=== PATIENT | female | born 1955 | race American Indian/Alaskan Native ===

== ENCOUNTER 2017-01-27 16:08 | Emergency (ER) | payer OTHER | END 2017-01-27 17:55 | disposition left against medical advice (07) | LOC: DL.ED 16:08 | DX: Z53.21 Procedure and treatment not carried out due to patient leaving prior to being seen by health care provider (principal) ==

== ENCOUNTER 2017-02-02 18:23 | Emergency (ER) | payer OTHER ==
[2017-02-02 18:52] VITALS: BP 141/63
[2017-02-02] MEDS ORDERED: Ketorolac 30 MG/ML SDV IM ONE (20:23)
--- NOTE | 2017-02-02 20:31 | EDM.PDOC ---
ED HPI GENERAL MEDICAL PROBLEM - General Chief Complaint: Back Pain or Injury Stated Complaint: BACK PAIN, [id number] Time Seen by Provider: 02/02/17 20:25 Source of Information: Reports: Patient History Limitations: Reports: No Limitations - History of Present Illness INITIAL COMMENTS - FREE TEXT/NARRATIVE: This 61 yo female patient reports to the ED with lower back pain. The patient reports her pain started this morning with no history of trauma or falls. 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 The patient reports her pain kept her home from work today. 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 Lower Back Pain Score (Numeric/FACES): 8 - Related Data Allergies Allergy/AdvReac Type Severity Reaction Status Date / Time No Known Allergies Allergy Verified 02/02/17 18:52 Home Meds: Home Meds Aspirin [Hostetter Aspirin] 81 mg PO DAILY 08/17/13 [History] Lisinopril 10 mg PO DAILY 08/17/13 [History] Zolpidem [Ambien] 5 mg PO BEDTIME PRN 08/17/13 [History] traMADol [Ultram] 50 mg PO Q12HR PRN 08/17/13 [History] Cholecalciferol (Vitamin D3) [Vitamin D] 1,000 unit PO DAILY 09/05/14 [History] Simvastatin [Zocor] 10 mg PO BEDTIME 09/05/14 [History] Metoprolol Succinate [Toprol XL 50mg] 1 tab PO BID 04/22/15 [History] Past Medical History HEENT History: Reports: Impaired Vision Other HEENT History: wears glasses Cardiovascular History: Reports: High Cholesterol, Hypertension, Pacemaker Respiratory History: Reports: SOB Gastrointestinal History: Reports: Cirrhosis Genitourinary History: Reports: Pyelonephritis, Renal Calculus 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 Musculoskeletal History: Reports: RA Neurological History: Reports: None Psychiatric History: Reports: Addiction Endocrine/Metabolic History: Reports: None Hematologic History: Reports: None Immunologic History: Reports: None Oncologic (Cancer) History: Reports: Breast Dermatologic History: Reports: None - Past Surgical History GI Surgical History: Reports: Cholecystectomy Social & Family History - Family History Family Medical History: Noncontributory - Tobacco Use Smoking Status *Q: Current Every Day Smoker Years of Tobacco use: 40 Packs/Tins Daily: 10 Used Tobacco, but Quit: No Month Tobacco Last Used: aug Second Hand Smoke Exposure: No - Caffeine Use Caffeine Use: Reports: Coffee, Soda, Tea - Alcohol Use Days Per Week of Alcohol Use: 0 - Recreational Drug Use Recreational Drug Use: No - Living Situation & Occupation Living situation: Reports: with Family ED ROS GENERAL - Review of Systems Review Of Systems: ROS reveals no pertinent complaints other than HPI. ED EXAM,LOWER BACK PAIN/INJURY - Physical Exam Exam: See Below Exam Limited By: No Limitations General Appearance: Alert, WD/WN, Moderate Distress, Thin Eye Exam: Bilateral Eye: EOMI, Normal Inspection, PERRL Ears: Normal External Exam, Normal Canal, Hearing Grossly Normal, Normal TMs Nose: Normal Inspection, Normal Mucosa, No Blood Throat/Mouth: Normal Inspection, Normal Lips, Normal Teeth, Normal Gums, Normal Oropharynx, Normal Voice, No Airway Compromise Head: Atraumatic, Normocephalic Neck: Normal Inspection, Supple, Non-Tender, Full Range of Motion Respiratory/Chest: No Respiratory Distress, Lungs Clear, Normal Breath Sounds, No Accessory Muscle Use, Chest Non-Tender Cardiovascular: Normal Peripheral Pulses, Regular Rate, Rhythm, No Edema, No Gallop, No JVD, No Murmur, No Rub GI/Abdominal: Normal Bowel Sounds, Soft, Non-Tender, No Organomegaly, No Distention, No Abnormal Bruit, No Mass (Female) Exam: Deferred Rectal (Female) Exam: Deferred Back Exam: Decreased Range of Motion, Paraspinal Tenderness (lower back), Vertebral Tenderness (lower back) Extremities: Normal Inspection, Normal Range of Motion, Non-Tender, No Pedal Edema, Normal Capillary Refill Neurological: Alert, Normal Mood/Affect, Normal Dorsiflexion, CN II-XII Intact, Normal Plantar Flexion, Normal Gait, Normal Reflexes, No Motor/Sensory Deficits , Oriented x 3 Psychiatric: Normal Affect, Normal Mood Skin Exam: Warm, Dry, Intact, Normal Color, No Rash Lymphatic: No Adenopathy Course - Vital Signs Last Recorded V/S: Last Vital Signs Temp 36.4 C 02/02/17 18:36 Pulse 73 02/02/17 18:36 Resp 16 02/02/17 18:36 BP 141/63 H 02/02/17 18:36 Pulse Ox 100 02/02/17 18:36 - Orders/Labs/Meds Labs: Laboratory Tests 02/02/17 02/02/17 Range/Units 19:00 19:00 Urine Color Yellow (YELLOW) Urine Appearance Clear (CLEAR) Urine pH 6.0 (5.0-9.0) Ur Specific [place] 1.010 (1.005-1.030) Urine Protein Negative (NEGATIVE) Urine Glucose (UA) Negative (NEGATIVE) Urine Ketones Negative (NEGATIVE) Urine Occult Blood Negative (NEGATIVE) Urine Nitrite Negative (NEGATIVE) Urine Bilirubin Negative (NEGATIVE) Urine Urobilinogen 1.0 (0.2-1.0) mg/dL Ur Leukocyte Esterase Negative (NEGATIVE) Urine RBC 0-5 /HPF Urine WBC 0-5 (0-5/HPF) /HPF Ur Epithelial Cells Few /HPF Urine Bacteria Few (0-FEW/HPF) /HPF Urine Opiates Screen Negative (NEGATIVE) Ur Oxycodone Screen Negative (NEGATIVE) Urine Methadone Screen Negative (NEGATIVE) Ur Barbiturates Screen Negative (NEGATIVE) U Tricyclic Antidepress Negative (NEGATIVE) Ur Phencyclidine Scrn Negative (NEGATIVE) Ur Amphetamine Screen Negative (NEGATIVE) U Methamphetamines Scrn Negative (NEGATIVE) Urine MDMA Screen Negative (NEGATIVE) U Benzodiazepines Scrn Negative (NEGATIVE) Urine Cocaine Screen Negative (NEGATIVE) U Marijuana (THC) Screen Negative (NEGATIVE) Meds: Medications Discontinued Medications Generic Name Dose Route Start Last Admin Trade Name Freq PRN Reason Stop Dose Admin Ketorolac Tromethamine 60 mg 02/02/17 20:23 Toradol IM 02/02/17 20:24 ONETIME ONE Departure - Departure Time of Disposition: 20:28 Disposition: Home, Self-Care 01 Condition: fair Clinical Impression: Low back pain Qualifiers: Chronicity: acute Back pain laterality: midline Sciatica presence: without sciatica Qualified Code(s): M54.5 - Low back pain - Discharge Information Instructions: Back Pain, Adult, [id number], Chronic Back Pain Forms: ED Department Discharge Care Plan Goals: The patient was advised of the examination and lab results during the visit. The patient was given an injection of Toradol while in the ED. The patient was discharged with Flexeril (10 mg) #1 to take by mouth at bedtime and Toradol (10 mg) #2 to take 1 by mouth every 6 hours and a script for Toradol (10 mg) #20 to take 1 by mouth every 6 hours and Flexeril (10 mg) #10 to take 1 by mouth at bedtime. The patient should follow-up with her primary care facility on Saturday for continued evaluation and further treatment.
[2017-02-02] MEDS ORDERED: Ketorolac 10 MG Tab ONE (20:46)
[2017-02-02] MEDS ORDERED: Cyclobenzaprine 10 MG Tab PO ONE (20:47)
[2017-02-02] MEDS ORDERED: Ketorolac 10 MG Tab PO ONE (20:47)
[2017-02-02] MEDS ORDERED: Cyclobenzaprine 10 MG Tab ONE (20:47)
== END 2017-02-02 20:52 | disposition home or self-care (01) ==
LOC: DL.ED 18:23
DX: M54.5 Low back pain (principal); H54.7 Unspecified visual loss; E78.00 Pure hypercholesterolemia, unspecified; I10 Essential (primary) hypertension; Z95.0 Presence of cardiac pacemaker; Z98.890 Other specified postprocedural states; F17.210 Nicotine dependence, cigarettes, uncomplicated; Z79.899 Other long term (current) drug therapy; Z79.82 Long term (current) use of aspirin
CPT/HCPCS: 80305; 81001; 96372; 99283; J1885; A9270-GY

== ENCOUNTER 2017-04-28 19:11 | Emergency (ER) | payer OTHER ==
[2017-04-28 19:41] VITALS: BP 124/55
--- NOTE | 2017-04-30 04:45 | EDM.PDOC ---
ED HPI GENERAL MEDICAL PROBLEM - General Chief Complaint: Lower Extremity Injury/Pain Stated Complaint: BACK PAIN [id number] Time Seen by Provider: 04/28/17 22:00 Source of Information: Reports: Patient History Limitations: Reports: No Limitations - History of Present Illness INITIAL COMMENTS - FREE TEXT/NARRATIVE: c/o intermittent low back pain. Fell 3 weeks ago. pain worse today. Denies numbness or radiation of pain. Has not been seen in clinic for pain. 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 Lower Back Pain Score (Numeric/FACES): 7 - Related Data Allergies Allergy/AdvReac Type Severity Reaction Status Date / Time No Known Allergies Allergy Verified 04/28/17 19:41 Home Meds: Home Meds Lisinopril 10 mg PO DAILY 08/17/13 [History] Zolpidem [Ambien] 5 mg PO BEDTIME PRN 08/17/13 [History] traMADol [Ultram] 50 mg PO Q12HR PRN 08/17/13 [History] Cholecalciferol (Vitamin D3) [Vitamin D] 1,000 unit PO DAILY 09/05/14 [History] Simvastatin [Zocor] 10 mg PO BEDTIME 09/05/14 [History] Metoprolol Succinate [Toprol XL 50mg] 1 tab PO BID 04/22/15 [History] Rivaroxaban [Xarelto] 10 mg PO DAILY 04/28/17 [History] Past Medical History HEENT History: Reports: Impaired Vision Other HEENT History: wears glasses Cardiovascular History: Reports: Afib, High Cholesterol, Hypertension, Pacemaker Respiratory History: Reports: SOB Gastrointestinal History: Reports: Cholelithiasis, Cirrhosis Genitourinary History: Reports: Pyelonephritis, Renal Calculus 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, Musculoskeletal History: Reports: Back Pain, Chronic, RA Neurological History: Reports: None Psychiatric History: Reports: Addiction Endocrine/Metabolic History: Reports: None Hematologic History: Reports: None Immunologic History: Reports: None Oncologic (Cancer) History: Reports: Breast Dermatologic History: Reports: None - Past Surgical History GI Surgical History: Reports: Cholecystectomy Social & Family History - Family History Family Medical History: Noncontributory - Tobacco Use Smoking Status *Q: Current Every Day Smoker Years of Tobacco use: 40 Packs/Tins Daily: 0.3 Used Tobacco, but Quit: No Month Tobacco Last Used: aug Second Hand Smoke Exposure: No - Caffeine Use Caffeine Use: Reports: Coffee - Alcohol Use Days Per Week of Alcohol Use: 0 - Recreational Drug Use Recreational Drug Use: No - Living Situation & Occupation Living situation: Reports: with Family Review of Systems - Review of Systems Review Of Systems: ROS reveals no pertinent complaints other than HPI. ED EXAM, GENERAL - Physical Exam Exam: See Below Exam Limited By: No Limitations General Appearance: Alert, Mild Distress, Thin Eye Exam: Bilateral Eye: EOMI Ears: Normal External Exam Nose: Normal Inspection Throat/Mouth: Normal Inspection Head: Atraumatic, Normocephalic Neck: Normal Inspection Respiratory/Chest: No Respiratory Distress, Lungs Clear, Normal Breath Sounds Cardiovascular: Normal Peripheral Pulses, Regular Rate, Rhythm GI/Abdominal: Normal Bowel Sounds, Soft Back Exam: Paraspinal Tenderness (low lumbar sacral). No: CVA Tenderness (L), CVA Tenderness (R), Decreased Range of Motion, Muscle Spasm, Vertebral Tenderness Extremities: Normal Inspection, Normal Range of Motion Neurological: Alert, Oriented, Normal Cognition. No: Abnormal Gait, Abnormal Reflexes Psychiatric: Normal Affect Skin Exam: Warm, Dry, Intact, Normal Color Course - Vital Signs Last Recorded V/S: Last Vital Signs Temp 98.3 F 04/28/17 19:33 Pulse 73 04/28/17 19:33 Resp 16 04/28/17 19:33 BP 124/55 L 04/28/17 19:33 Pulse Ox 100 04/28/17 19:33 - Re-Assessments/Exams Free Text/Narrative Re-Assessment/Exam: Patient examined and orders placed. Patient noted did not want to wait and signed out AMA Departure - Departure Time of Disposition: 22:50 Disposition: Against Medical Advice 07 Condition: Undetermined Clinical Impression: Back pain Qualifiers: Back pain location: low back pain Chronicity: acute Back pain laterality: unspecified Sciatica presence: without sciatica Qualified Code(s): M54.5 - Low back pain - Discharge Information Referrals: PCP,None [Primary Care Provider] - Forms: ED Department Discharge
== END 2017-04-28 22:35 | disposition left against medical advice (07) ==
LOC: DL.ED 19:11
DX: M54.5 Low back pain (principal); I10 Essential (primary) hypertension; I48.91 Unspecified atrial fibrillation; E78.00 Pure hypercholesterolemia, unspecified; M06.9 Rheumatoid arthritis, unspecified; F17.210 Nicotine dependence, cigarettes, uncomplicated; Z85.3 Personal history of malignant neoplasm of breast; Z95.0 Presence of cardiac pacemaker; Z90.49 Acquired absence of other specified parts of digestive tract; Z79.899 Other long term (current) drug therapy
CPT/HCPCS: 99283

== ENCOUNTER 2017-07-17 10:23 | Emergency (ER) | payer OTHER ==
[2017-07-17] MEDS ORDERED: Sodium Chloride 0.9% 10 ML Syringe FLUSH PRN (10:55)
--- NOTE | 2017-07-17 11:04 | EDM.PDOC ---
ED HPI GENERAL MEDICAL PROBLEM - General Chief Complaint: Flank Pain Stated Complaint: PAIN, LEFT SIDE Time Seen by Provider: 07/17/17 10:50 Source of Information: Reports: Patient History Limitations: Reports: No Limitations - History of Present Illness INITIAL COMMENTS - FREE TEXT/NARRATIVE: This 61 yo female patient reports to the ED with left flank pain that radiates to her left shoulder. The patient reports her pain started 2-3 days ago and has been getting worse. The patient reports she does not remember doing anything to cause the pain (no lifting, no trauma and no fall). The patient reports she does have an appointment in the clinic at 1300 today, but she did not think she could put up with the pain that long. The patient reports she did take a Tramadol and 3x Tylenol (325 mg) this morning with no symptomatic relief. The patient reports she was seen for a UTI 2 weeks ago, took the antibiotics and felt better until 3 days ago. 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, Other Medication(s) Left Flank Pain Score (Numeric/FACES): 7 - Related Data Allergies Allergy/AdvReac Type Severity Reaction Status Date / Time No Known Allergies Allergy Verified 07/17/17 10:35 Home Meds: Home Meds Lisinopril 10 mg PO DAILY 08/17/13 [History] Zolpidem [Ambien] 5 mg PO BEDTIME PRN 08/17/13 [History] traMADol [Ultram] 50 mg PO Q12HR PRN 08/17/13 [History] Cholecalciferol (Vitamin D3) [Vitamin D] 1,000 unit PO DAILY 09/05/14 [History] Simvastatin [Zocor] 10 mg PO BEDTIME 09/05/14 [History] Metoprolol Succinate [Toprol XL 50mg] 1 tab PO BID 04/22/15 [History] Rivaroxaban [Xarelto] 10 mg PO DAILY 04/28/17 [History] Past Medical History HEENT History: Reports: Impaired Vision Other HEENT History: wears glasses Cardiovascular History: Reports: Afib, High Cholesterol, Hypertension, Pacemaker Respiratory History: Reports: SOB Gastrointestinal History: Reports: Cholelithiasis, Cirrhosis Genitourinary History: Reports: Pyelonephritis, Renal Calculus 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: Musculoskeletal History: Reports: Back Pain, Chronic, RA Neurological History: Reports: None Psychiatric History: Reports: Addiction Endocrine/Metabolic History: Reports: None Hematologic History: Reports: None Immunologic History: Reports: None Oncologic (Cancer) History: Reports: Breast Dermatologic History: Reports: None - Past Surgical History GI Surgical History: Reports: Cholecystectomy Social & Family History - Family History Family Medical History: Noncontributory - Tobacco Use Smoking Status *Q: Current Every Day Smoker Years of Tobacco use: 30 Packs/Tins Daily: 0.5 Used Tobacco, but Quit: No Month Tobacco Last Used: aug Second Hand Smoke Exposure: No - Caffeine Use Caffeine Use: Reports: Coffee, Tea - Alcohol Use Days Per Week of Alcohol Use: 0 - Recreational Drug Use Recreational Drug Use: No - Living Situation & Occupation Living situation: Reports: with Family ED ROS GENERAL - Review of Systems Review Of Systems: ROS reveals no pertinent complaints other than HPI. ED EXAM, GENERAL - Physical Exam Exam: See Below Exam Limited By: No Limitations General Appearance: Alert, WD/WN, Moderate Distress Eye Exam: Bilateral Eye: EOMI, Normal Inspection, PERRL Ears: Normal External Exam, Normal Canal, Hearing Grossly Normal, Normal TMs Nose: Normal Inspection, Normal Mucosa, No Blood Throat/Mouth: Normal Inspection, Normal Lips, Normal Teeth, Normal Gums, Normal Oropharynx, Normal Voice, No Airway Compromise Head: Atraumatic, Normocephalic Neck: Normal Inspection, Supple, Non-Tender, Full Range of Motion Respiratory/Chest: No Respiratory Distress, Lungs Clear, Normal Breath Sounds, No Accessory Muscle Use, Chest Non-Tender Cardiovascular: No Edema, No Gallop, No JVD, No Murmur, No Rub, Irregularly Irregular GI/Abdominal: Normal Bowel Sounds, Soft, Non-Tender, No Organomegaly, No Distention, No Abnormal Bruit, No Mass (Female) Exam: Deferred Rectal (Female) Exam: Deferred Back Exam: CVA Tenderness (L) Extremities: Normal Inspection, Normal Range of Motion, Non-Tender, Normal Capillary Refill, No Pedal Edema Neurological: Alert, Oriented, CN II-XII Intact, Normal Cognition, Normal Gait, Normal Reflexes, No Motor/Sensory Deficits Psychiatric: Normal Affect, Normal Mood Skin Exam: Warm, Dry, Intact, Normal Color, No Rash Lymphatic: No Adenopathy Course - Vital Signs Last Recorded V/S: Last Vital Signs Temp 36.7 C 07/17/17 10:46 Pulse 71 07/17/17 11:07 Resp 20 07/17/17 11:07 BP 170/71 H 07/17/17 11:07 Pulse Ox 100 07/17/17 11:07 - Orders/Labs/Meds Orders: Active Orders 24 hr Category Date Time Status EKG Documentation Completion [RC] URGENT Care 07/17/17 10:54 Active Sodium Chloride 0.9% [Saline Flush] Med 07/17/17 10:55 Active 10 ml FLUSH ASDIRECTED PRN Saline Lock Insert [OM.PC] Routine Oth 07/17/17 10:55 Ordered Medication Orders Sodium Chloride (Saline Flush) 10 ml FLUSH ASDIRECTED PRN PRN Reason: Keep Vein Open Last Admin: 07/17/17 11:03 Dose: 10 ml Labs: Laboratory Tests 07/17/17 07/17/17 07/17/17 Range/Units 10:42 10:42 10:50 WBC (5.0-10.0) 10^3/uL RBC (4.2-5.4) 10^6/uL Hgb (12.0-16.0) g/dL Hct (37.0-47.0) % MCV (80-100) fL MCH (27.0-34.0) pg MCHC (33.0-35.0) g/dL Plt Count (150-450) 10^3/uL Neut % (Auto) (42.2-75.2) % Lymph % (Auto) (20.5-50.1) % [place] % (Auto) (2-8) % Eos % (Auto) (1.0-3.0) % Baso % (Auto) (0.0-1.0) % Sodium (135-145) mmol/L Potassium (3.6-5.0) mmol/L Chloride (101-111) mmol/L Carbon Dioxide (21.0-31.0) mmol/L Anion Gap BUN (7-18) mg/dL Creatinine (0.6-1.3) mg/dL Est Cr Clr Drug Dosing mL/min Estimated GFR (MDRD) BUN/Creatinine Ratio Glucose (74-105) mg/dL Calcium (8.4-10.2) mg/dl Total Bilirubin (0.2-1.0) mg/dL AST (10-42) IU/L ALT (10-60) IU/L Alkaline Phosphatase (42-121) IU/L Troponin I (0.00-0.02) ng/ml Total Protein (6.7-8.2) g/dl Albumin (3.2-5.5) g/dl Globulin Albumin/Globulin Ratio Urine Color Yellow (YELLOW) Urine Appearance Clear (CLEAR) Urine pH 7.0 (5.0-9.0) Ur Specific [place] 1.010 (1.005-1.030) Urine Protein Negative (NEGATIVE) Urine Glucose (UA) Negative (NEGATIVE) Urine Ketones Negative (NEGATIVE) Urine Occult Blood Trace-intact H (NEGATIVE) Urine Nitrite Negative (NEGATIVE) Urine Bilirubin Negative (NEGATIVE) Urine Urobilinogen 0.2 (0.2-1.0) mg/dL Ur Leukocyte Esterase Negative (NEGATIVE) Urine RBC 0-5 /HPF Urine WBC 0-5 (0-5/HPF) /HPF Ur Epithelial Cells Few /HPF Urine Bacteria Rare (0-FEW/HPF) /HPF Urine Opiates Screen Negative (NEGATIVE) Ur Oxycodone Screen Negative (NEGATIVE) Urine Methadone Screen Negative (NEGATIVE) Ur Barbiturates Screen Negative (NEGATIVE) U Tricyclic Antidepress Negative (NEGATIVE) Ur Phencyclidine Scrn Negative (NEGATIVE) Ur Amphetamine Screen Negative (NEGATIVE) U Methamphetamines Scrn Negative (NEGATIVE) Urine MDMA Screen Negative (NEGATIVE) U Benzodiazepines Scrn Negative (NEGATIVE) Urine Cocaine Screen Negative (NEGATIVE) U Marijuana (THC) Screen Negative (NEGATIVE) Ethyl Alcohol 5 mg/dL 07/17/17 07/17/17 07/17/17 Range/Units 10:50 10:50 10:50 WBC 6.0 (5.0-10.0) 10^3/uL RBC 3.99 L (4.2-5.4) 10^6/uL Hgb 12.2 (12.0-16.0) g/dL Hct 38.5 (37.0-47.0) % MCV 96.5 (80-100) fL MCH 30.6 (27.0-34.0) pg MCHC 31.7 L (33.0-35.0) g/dL Plt Count 161 (150-450) 10^3/uL Neut % (Auto) 62.9 (42.2-75.2) % Lymph % (Auto) 26.2 (20.5-50.1) % [place] % (Auto) 9.2 H (2-8) % Eos % (Auto) 1.5 (1.0-3.0) % Baso % (Auto) 0.2 (0.0-1.0) % Sodium 139 (135-145) mmol/L Potassium 4.0 (3.6-5.0) mmol/L Chloride 105 (101-111) mmol/L Carbon Dioxide 26.0 (21.0-31.0) mmol/L Anion Gap 12.0 BUN 10 (7-18) mg/dL Creatinine 0.7 (0.6-1.3) mg/dL Est Cr Clr Drug Dosing 78.01 mL/min Estimated GFR (MDRD) > 60 BUN/Creatinine Ratio 14.28 Glucose 101 (74-105) mg/dL Calcium 9.7 (8.4-10.2) mg/dl Total Bilirubin 1.0 (0.2-1.0) mg/dL AST 39 (10-42) IU/L ALT 14 (10-60) IU/L Alkaline Phosphatase 360 H (42-121) IU/L Troponin I 0.02 (0.00-0.02) ng/ml Total Protein 8.6 H (6.7-8.2) g/dl Albumin 2.9 L (3.2-5.5) g/dl Globulin 5.7 Albumin/Globulin Ratio 0.51 Urine Color (YELLOW) Urine Appearance (CLEAR) Urine pH (5.0-9.0) Ur Specific [place] (1.005-1.030) Urine Protein (NEGATIVE) Urine Glucose (UA) (NEGATIVE) Urine Ketones (NEGATIVE) Urine Occult Blood (NEGATIVE) Urine Nitrite (NEGATIVE) Urine Bilirubin (NEGATIVE) Urine Urobilinogen (0.2-1.0) mg/dL Ur Leukocyte Esterase (NEGATIVE) Urine RBC /HPF Urine WBC (0-5/HPF) /HPF Ur Epithelial Cells /HPF Urine Bacteria (0-FEW/HPF) /HPF Urine Opiates Screen (NEGATIVE) Ur Oxycodone Screen (NEGATIVE) Urine Methadone Screen (NEGATIVE) Ur Barbiturates Screen (NEGATIVE) U Tricyclic Antidepress (NEGATIVE) Ur Phencyclidine Scrn (NEGATIVE) Ur Amphetamine Screen (NEGATIVE) U Methamphetamines Scrn (NEGATIVE) Urine MDMA Screen (NEGATIVE) U Benzodiazepines Scrn (NEGATIVE) Urine Cocaine Screen (NEGATIVE) U Marijuana (THC) Screen (NEGATIVE) Ethyl Alcohol mg/dL Meds: Medications Generic Name Dose Route Start Last Admin Trade Name Freq PRN Reason Stop Dose Admin Sodium Chloride 10 ml 07/17/17 10:55 07/17/17 11:03 Saline Flush FLUSH 10 ml ASDIRECTED PRN Administration Keep Vein Open Discontinued Medications Generic Name Dose Route Start Last Admin Trade Name Freq PRN Reason Stop Dose Admin Ketorolac Tromethamine 30 mg 07/17/17 11:24 07/17/17 11:28 Toradol IVPUSH 07/17/17 11:25 30 mg ONETIME ONE Administration Departure - Departure Time of Disposition: 12:35 Disposition: Home, Self-Care 01 Condition: Fair Clinical Impression: Low back strain Qualifiers: Encounter type: initial encounter Qualified Code(s): S39.012A - Strain of muscle, fascia and tendon of lower back, initial encounter - Discharge Information Instructions: Back Pain, Adult, [id number] Forms: ED Department Discharge Care Plan Goals: The patient was advised of the examination, lab, EKG, and CT results during the visit. The patient was given an IV dose of Toradol while in the ED. The patient was discharged with a script for Toradol (10 mg) #16 to take 1 by mouth every 6 hours and Flexeril (5 mg) #10 to take 1 by mouth at bedtime. If the patient has any additional symptoms or concerns, the patient should follow-up with her primary care facility or return to the emergency department. - My Orders Last 24 Hours: My Active Orders 07/17/17 10:54 EKG Documentation Completion [RC] URGENT 07/17/17 10:55 Sodium Chloride 0.9% [Saline Flush] 10 ml FLUSH ASDIRECTED PRN Saline Lock Insert [OM.PC] Routine - Assessment/Plan Last 24 Hours: My Active Orders 07/17/17 10:54 EKG Documentation Completion [RC] URGENT 07/17/17 10:55 Sodium Chloride 0.9% [Saline Flush] 10 ml FLUSH ASDIRECTED PRN Saline Lock Insert [OM.PC] Routine
[2017-07-17 11:22] LABS: CHLORIDE,CL 105 mmol/L (101-111); SODIUM,NA 139 mmol/L (135-145)
[2017-07-17] MEDS ORDERED: Ketorolac 30 MG/ML SDV IVPUSH ONE (11:24)
--- NOTE | 2017-07-17 12:23 | CT ---
Clinical history: 61-year-old hypertensive 143 pound female "smoker" with trace hematuria and flank p ain (primary biliary cirrhosis and history breast cancer). Rule out nephrolithiasis. Scan technique: Volume acquisition of data emergency unenhanced CT scan of the abdomen and pelvis (ki dneys/ureters/bladder) obtained with the patient lying supine on the Siemens multi slice CT scanner [place], [place]. All data archived PACS system for storage, reformatti ng axial/sagittal/coronal planes and study. Interpretation: 1. Cardiomegaly and cardiac pacemaker leads. Bibasilar atelectasis/infiltrates and small effusions. 2. Atheromatous calcifications scattered across course of normal caliber aortoiliac vessels. No sign of aneurysm or dissection. 3. Asymmetrically larger right kidney with mild pyelocaliectasis but no sign of ipsilateral nephrolit hiasis or ureterectasis. 4. Smaller left kidney without pyelocaliectasis or ureterectasis. No nephrolithiasis or signs of obst ructive uropathy on the left. 5. Vascular calcifications (arterial vascular and phleboliths) pelvis and adnexa (left greater than r ight). Uterine calcification. 6. No pelvic or abdominal mass lesion, mesenteric or retroperitoneal lymphadenopathy, inflammatory "d irty" peritoneal fat, sign of mechanical bowel obstruction or free intraperitoneal air. Normal append ix RLQ. 7. Surgical clips gallbladder fossa. Unenhanced stomach (small hiatus hernia), pancreas and adrenal g lands unremarkable. Hepatosplenomegaly. No ascites. Symmetric distended urinary bladder unremarkable. CONCLUSION: Hepatocellular disease (splenomegaly). Cardiomyopathy. Bibasilar infiltrates (see above). Usual signs of senescence. *No current evidence of nephrolithiasis or obstructive uropathy.
[2017-07-17 12:47] VITALS: BP 173/65
--- NOTE | 2017-07-25 14:09 | EKG ---
07/17/2017- JEFERSON JACOBSEN - FINDINGS: EKG, per my reading, shows ventricular paced rhythm. [facility] /[id number]
== END 2017-07-17 12:43 | disposition home or self-care (01) ==
LOC: DL.ED 10:23
DX: S39.012A Strain of muscle, fascia and tendon of lower back, initial encounter (principal); I10 Essential (primary) hypertension; E78.00 Pure hypercholesterolemia, unspecified; I48.91 Unspecified atrial fibrillation; F17.210 Nicotine dependence, cigarettes, uncomplicated; Z79.899 Other long term (current) drug therapy; X58.XXXA Exposure to other specified factors, initial encounter
CPT/HCPCS: 36415; 74176; 80053; 80305; 81001; 84484; 85025; 93005; 96374; 99285; G0480; J1885; J7050

== ENCOUNTER 2019-06-25 14:07 | Emergency (ER) | payer MEDICAID, OTHER ==
[2019-06-25 14:32] VITALS: BP 133/51; PULSE 73
--- NOTE | 2019-06-25 15:08 | EDM.PDOC ---
ED HPI GENERAL MEDICAL PROBLEM - General Chief Complaint: Abdominal Pain Stated Complaint: STOMACH PAIN Time Seen by Provider: 06/25/19 14:45 Source of Information: Reports: Patient History Limitations: Reports: No Limitations - History of Present Illness INITIAL COMMENTS - FREE TEXT/NARRATIVE: This 63 yo female patient reports to the ED with her daughter due to increased weakness and increased abdominal pain. The patient's daughter reports the patient was going well yesterday, but has not been able to do anything on her own today. The patient does have a history of breast cancer and cirrhosis. The patient reports she has been having abdominal pain for 3 days with nausea, vomiting and diarrhea. The patient refused to allow us to given her IV fluids initially. Duration: Day(s):, Constant, Getting Worse Location: Reports: Abdomen, Generalized Quality: Reports: Other Severity: Moderate Improves with: Reports: None Worsens with: Reports: None Context: Reports: Activity, Other Generalized Pain Score (Numeric/FACES): 10 - Related Data Allergies Allergy/AdvReac Type Severity Reaction Status Date / Time No Known Allergies Allergy Verified 06/25/19 14:32 Home Meds: Home Meds Lisinopril 10 mg PO DAILY 08/17/13 [History] Zolpidem [Ambien] 5 mg PO BEDTIME PRN 08/17/13 [History] traMADol [Ultram] 50 mg PO Q12HR PRN 08/17/13 [History] Cholecalciferol (Vitamin D3) [Vitamin D] 1,000 unit PO DAILY 09/05/14 [History] Simvastatin [Zocor] 10 mg PO BEDTIME 09/05/14 [History] Metoprolol Succinate [Toprol XL 50mg] 1 tab PO BID 04/22/15 [History] Rivaroxaban [Xarelto] 10 mg PO DAILY 04/28/17 [History] Past Medical History HEENT History: Reports: Impaired Vision Other HEENT History: wears glasses Cardiovascular History: Reports: Afib, High Cholesterol, Hypertension, Pacemaker Respiratory History: Reports: SOB Gastrointestinal History: Reports: Cholelithiasis, Cirrhosis Genitourinary History: Reports: Pyelonephritis, Renal Calculus [employer] History: Reports: Musculoskeletal History: Reports: Back Pain, Chronic, RA Neurological History: Reports: None Psychiatric History: Reports: Addiction Endocrine/Metabolic History: Reports: None Hematologic History: Reports: None Immunologic History: Reports: None Oncologic (Cancer) History: Reports: Breast Dermatologic History: Reports: None - Past Surgical History GI Surgical History: Reports: Cholecystectomy Social & Family History - Family History Family Medical History: Noncontributory - Tobacco Use Smoking Status *Q: Current Every Day Smoker Years of Tobacco use: 40 Packs/Tins Daily: 0.5 Second Hand Smoke Exposure: No - Caffeine Use Caffeine Use: Reports: Coffee, Soda - Recreational Drug Use Recreational Drug Use: No - Living Situation & Occupation Living situation: Reports: with Family ED ROS GENERAL - Review of Systems Review Of Systems: ROS reveals no pertinent complaints other than HPI. ED EXAM, GI/ABD - Physical Exam Exam: See Below Exam Limited By: Altered Mental Status General Appearance: Alert, Moderate Distress Eyes: Bilateral: Normal Appearance, EOMI Ears: Normal External Exam, Normal Canal, Hearing Grossly Normal, Normal TMs Nose: Normal Inspection, Normal Mucosa, No Blood Throat/Mouth: Normal Inspection, Normal Lips, Normal Teeth, Normal Gums, Normal Oropharynx, Normal Voice, No Airway Compromise Head: Atraumatic, Normocephalic Neck: Normal Inspection, Supple, Non-Tender, Full Range of Motion Respiratory/Chest: No Respiratory Distress, Lungs Clear, Normal Breath Sounds, No Accessory Muscle Use, Chest Non-Tender Cardiovascular: Normal Peripheral Pulses, Regular Rate, Rhythm, No Edema, No Gallop, No JVD, No Murmur, No Rub GI/Abdominal Exam: Normal Bowel Sounds, No Organomegaly, No Distention, No Abnormal Bruit, No Mass, Pelvis Stable, Tender (diffuse tenderness to palpation) (Female) Exam: Deferred Rectal (Female) Exam: Deferred Back Exam: Normal Inspection, Full Range of Motion, NT Extremities: Normal Inspection, Normal Range of Motion, Non-Tender, Normal Capillary Refill, No Pedal Edema Neurological: Alert, Oriented, CN II-XII Intact, Normal Cognition, Normal Gait, Normal Reflexes, No Motor/Sensory Deficits Psychiatric: Anxious Skin Exam: Jaundice Lymphatic: No Adenopathy Course - Vital Signs Last Recorded V/S: Last Vital Signs Temp 36.6 C 06/25/19 14:23 Pulse 73 06/25/19 14:23 Resp 16 06/25/19 14:23 BP 133/51 L 06/25/19 14:23 Pulse Ox 99 06/25/19 14:23 - Orders/Labs/Meds Orders: Active Orders 24 hr Category Date Time Status EKG Documentation Completion [RC] URGENT Care 06/25/19 14:29 Active CBC WITH AUTO DIFF [HEME] Urgent Lab 06/25/19 14:41 Results CULTURE BLOOD [BC] Stat Lab 06/25/19 14:41 Received MANUAL DIFFERENTIAL QA/NC [HEME] Urgent Lab 06/25/19 14:41 Results UA RFX ZAIRE AND CULT IF INDIC [URIN] Urgent Lab 06/25/19 14:44 Ordered Sodium Chloride 0.9% [Normal Saline] 1,000 ml Med 06/25/19 15:09 Active IV .BOLUS Medication Orders Sodium Chloride (Normal Saline) 1,000 mls @ 500 mls/hr IV .BOLUS ONE Stop: 06/25/19 17:08 Last Admin: 06/25/19 15:32 Dose: 500 mls/hr Labs: Laboratory Tests 06/25/19 06/25/19 06/25/19 Range/Units 14:41 14:41 14:41 WBC (5.0-10.0) 10^3/uL RBC (4.2-5.4) 10^6/uL Hgb (12.0-16.0) g/dL Hct (37.0-47.0) % MCV (80-100) fL MCH (27.0-34.0) pg MCHC (33.0-35.0) g/dL Plt Count (150-450) 10^3/uL Neut % (Auto) (42.2-75.2) % Lymph % (Auto) (20.5-50.1) % [place] % (Auto) (2-8) % Eos % (Auto) (1.0-3.0) % Baso % (Auto) (0.0-1.0) % Add Manual Diff Sodium (135-145) mmol/L Potassium (3.6-5.0) mmol/L Chloride (101-111) mmol/L Carbon Dioxide (21.0-31.0) mmol/L Anion Gap BUN (7-18) mg/dL Creatinine (0.6-1.3) mg/dL Est Cr Clr Drug Dosing mL/min Estimated GFR (MDRD) BUN/Creatinine Ratio Glucose (74-105) mg/dL Lactic Acid 1.2 (0.5-2.2) mmol/L Calcium (8.4-10.2) mg/dl Magnesium 2.1 (1.8-2.5) mg/dL Total Bilirubin (0.2-1.0) mg/dL AST (10-42) IU/L ALT (10-60) IU/L Alkaline Phosphatase (42-121) IU/L Ammonia 173 H (11-35) umol/L Troponin I (0.00-0.02) ng/ml Total Protein (6.7-8.2) g/dl Albumin (3.2-5.5) g/dl Globulin Albumin/Globulin Ratio Amylase 26 L (28-100) U/L Lipase 41 (22-51) U/L Salicylates < 4 mg/dL Acetaminophen < 10 ug/mL Ethyl Alcohol < 5 mg/dL 06/25/19 06/25/19 Range/Units 14:41 14:41 WBC 12.6 H (5.0-10.0) 10^3/uL RBC 4.05 L (4.2-5.4) 10^6/uL Hgb 12.7 (12.0-16.0) g/dL Hct 36.5 L (37.0-47.0) % MCV 90.1 D (80-100) fL MCH 31.4 (27.0-34.0) pg MCHC 34.8 (33.0-35.0) g/dL Plt Count 108 L (150-450) 10^3/uL Neut % (Auto) 80.1 H (42.2-75.2) % Lymph % (Auto) 8.8 L (20.5-50.1) % [place] % (Auto) 10.7 H (2-8) % Eos % (Auto) 0.4 L (1.0-3.0) % Baso % (Auto) 0.0 (0.0-1.0) % Add Manual Diff Yes Sodium 126 L D (135-145) mmol/L Potassium 3.8 (3.6-5.0) mmol/L Chloride 97 L (101-111) mmol/L Carbon Dioxide 18.0 L (21.0-31.0) mmol/L Anion Gap 14.8 BUN 55 H D (7-18) mg/dL Creatinine 0.9 (0.6-1.3) mg/dL Est Cr Clr Drug Dosing 59.12 mL/min Estimated GFR (MDRD) > 60 BUN/Creatinine Ratio 61.11 Glucose 128 H (74-105) mg/dL Lactic Acid (0.5-2.2) mmol/L Calcium 8.7 (8.4-10.2) mg/dl Magnesium (1.8-2.5) mg/dL Total Bilirubin 6.1 H (0.2-1.0) mg/dL AST 72 H (10-42) IU/L ALT 42 (10-60) IU/L Alkaline Phosphatase 261 H (42-121) IU/L Ammonia (11-35) umol/L Troponin I 0.03 H* (0.00-0.02) ng/ml Total Protein 7.0 (6.7-8.2) g/dl Albumin 2.3 L (3.2-5.5) g/dl Globulin 4.7 Albumin/Globulin Ratio 0.49 Amylase (28-100) U/L Lipase (22-51) U/L Salicylates mg/dL Acetaminophen ug/mL Ethyl Alcohol mg/dL Meds: Medications Generic Name Dose Route Start Last Admin Trade Name Freq PRN Reason Stop Dose Admin Sodium Chloride 1,000 mls @ 500 mls/hr 06/25/19 15:09 06/25/19 15:32 Normal Saline IV 06/25/19 17:08 500 mls/hr .BOLUS ONE Administration Discontinued Medications Generic Name Dose Route Start Last Admin Trade Name Freq PRN Reason Stop Dose Admin Lactulose 20 gm 06/25/19 15:30 06/25/19 15:35 Cephulac PO 06/25/19 15:31 20 gm ONETIME ONE Administration Departure - Departure Time of Disposition: 15:47 Disposition: DC/Tfer to [facility] Condition: Serious Clinical Impression: Increased ammonia level, Encephalopathy acute, Hyponatremia Abdominal pain Qualifiers: Abdominal location: generalized Qualified Code(s): R10.84 - Generalized abdominal pain - Discharge Information *PRESCRIPTION DRUG MONITORING PROGRAM REVIEWED*: Not Applicable *COPY OF PRESCRIPTION DRUG MONITORING REPORT IN PATIENT DIANE: Not Applicable Forms: Interfacility Transfer EMTALA Care Plan Goals: Discussed the patient's history, examination, lab and treatments with Dr. Crawley. Dr. Crawley accepted the patient for continued evaluation and further management as an inpatient at [facility] in [place]. The patient will be transported by [facility]. - My Orders Last 24 Hours: My Active Orders 06/25/19 14:29 EKG Documentation Completion [RC] URGENT 06/25/19 14:41 CBC WITH AUTO DIFF [HEME] Urgent CULTURE BLOOD [BC] Stat MANUAL DIFFERENTIAL QA/NC [HEME] Urgent 06/25/19 14:44 UA RFX ZAIRE AND CULT IF INDIC [URIN] Urgent 06/25/19 15:09 Sodium Chloride 0.9% [Normal Saline] 1,000 ml IV .BOLUS - Assessment/Plan Last 24 Hours: My Active Orders 06/25/19 14:29 EKG Documentation Completion [RC] URGENT 06/25/19 14:41 CBC WITH AUTO DIFF [HEME] Urgent CULTURE BLOOD [BC] Stat MANUAL DIFFERENTIAL QA/NC [HEME] Urgent 06/25/19 14:44 UA RFX ZAIRE AND CULT IF INDIC [URIN] Urgent 06/25/19 15:09 Sodium Chloride 0.9% [Normal Saline] 1,000 ml IV .BOLUS
[2019-06-25 15:15] LABS: ANION GAP 14.8; CHLORIDE,CL 97 mmol/L (101-111); SODIUM,NA 126 mmol/L (135-145)
[2019-06-25 15:19] LABS: ACETAMINOPHEN < 10 ug/mL
[2019-06-25] MEDS: Sodium Chloride 0.9% 1,000 ML IV ONE (15:32)
[2019-06-25] MEDS: Lactulose Soln 10 GM/15 ML 30 ML UD Cup PO ONE (15:35)
== END 2019-06-25 16:06 ==
LOC: DL.ED 14:07
DX: G93.40 Encephalopathy, unspecified (principal); E87.1 Hypo-osmolality and hyponatremia; R10.84 Generalized abdominal pain; R79.89 Other specified abnormal findings of blood chemistry; I10 Essential (primary) hypertension; E78.00 Pure hypercholesterolemia, unspecified; I48.91 Unspecified atrial fibrillation; F17.210 Nicotine dependence, cigarettes, uncomplicated; Z79.01 Long term (current) use of anticoagulants; Z79.899 Other long term (current) drug therapy
CPT/HCPCS: 36415; 80053; 80320; 80329; 82140; 82150; 83605; 83690; 83735; 84484; 85025; 87040; 93005; 99284; A9270; J7030; G0480

== ENCOUNTER 2022-09-26 11:31 | Day surgery (SDC) | payer MEDICARE, OTHER ==
[2022-09-26 11:07] VITALS: BP 128/52; PULSE 71
[~2022-09-26 11:31] MED LIST: Acetaminophen 325 MG Tab PO PRN; Acetaminophen/Codeine 300-30 MG Tab PO PRN; Acetylcholine 20 MG/2 ML Intraocular Inj Kit EYELF ONE; Apraclonidine 0.5% Ophth Soln 5 ML Bot EYELF ONE; Balanced Salt Solution Ophth Irrig 500 ML Bottle IOCULAR ONE; Cataract Ophth Solution EYELF ONE; Chondroitin Sulfate/Hyaluronate Sodium Ophth Inj 0.5 ML Syringe IOCULAR ONE; Chondroitin Sulfate/Hyaluronate Sodium Ophth Inj 0.75 ML Syringe EYELF ONE; Dexamethasone/Neomycin/Polymyxin B Ophth Oint 3.5 GM Tube EYELF ONE; Diclofenac Sodium 0.1% Ophth Soln 5 ML Bottle EYELF ONE; Lidocaine 1% 30 ML SDV ONE; Moxifloxacin 0.5% Ophth Soln 3 ML Bottle EYELF ONE; Ondansetron 4 MG/2 ML SDV IVPUSH PRN; Phenylephrine 10% Ophth Soln 5 ML Bot EYELF PRN; Povidone-Iodine 5% Sterile Ophth Soln 30 ML Bottle EYELF ONE; Proparacaine 0.5% Ophth Soln 15 ML Bottle EYELF ONE; Sodium Chloride 0.9% 10 ML Syringe FLUSH PRN; Timolol Maleate 0.5% Ophth Soln 5 ML Bottle EYELF ONE; Tropicamide 1% Ophth Soln 15 ML Bottle EYELF ONE; Vancomycin 500 MG SDV EYELF ONE
[2022-09-26] MEDS ORDERED: Midazolam 1 MG/ML 2 ML SDV IV ONE (11:32)
[2022-09-26] MEDS ORDERED: Dexamethasone 4 MG/ML SDV IV ONE (11:32)
[2022-09-26] MEDS ORDERED: Sodium Chloride 0.9% 10 ML Syringe IV ONE (11:32)
== END 2022-09-26 11:40 | disposition home or self-care (01) ==
LOC: DL.SDS 11:31
PROVIDERS: ATTEND Ophthalmology
DX: H25.812 Combined forms of age-related cataract, left eye (principal); H40.1120 Primary open-angle glaucoma, left eye, stage unspecified; I10 Essential (primary) hypertension; E78.5 Hyperlipidemia, unspecified; G62.9 Polyneuropathy, unspecified; G47.00 Insomnia, unspecified; E55.9 Vitamin D deficiency, unspecified; G89.29 Other chronic pain; D64.9 Anemia, unspecified; K21.9 Gastro-esophageal reflux disease without esophagitis; M81.0 Age-related osteoporosis without current pathological fracture; F17.210 Nicotine dependence, cigarettes, uncomplicated; Z95.0 Presence of cardiac pacemaker; Z79.899 Other long term (current) drug therapy
CPT/HCPCS: A9270-GY; J1100; J2250; J3370; J3490

== ENCOUNTER 2023-01-09 10:04 | Day surgery (SDC) | payer MEDICARE, OTHER ==
[2023-01-09] MEDS ORDERED: Acetaminophen/Codeine 300-30 MG Tab PO PRN (10:15)
[2023-01-09] MEDS ORDERED: Timolol Maleate 0.5% Ophth Soln 5 ML Bottle EYERT ONE (10:15)
[2023-01-09] MEDS ORDERED: Ondansetron 4 MG/2 ML SDV IVPUSH PRN (10:15)
[2023-01-09] MEDS ORDERED: Moxifloxacin 0.5% Ophth Soln 3 ML Bottle EYERT ONE (10:15)
[2023-01-09] MEDS ORDERED: Phenylephrine 10% Ophth Soln 5 ML Bot EYERT PRN (10:15)
[2023-01-09] MEDS ORDERED: Sodium Chloride 0.9% 10 ML Syringe FLUSH PRN (10:15)
[2023-01-09] MEDS ORDERED: Povidone-Iodine 5% Sterile Ophth Soln 30 ML Bottle EYERT ONE ×2 (10:15→11:10)
[2023-01-09] MEDS ORDERED: Tropicamide 1% Ophth Soln 15 ML Bottle EYERT ONE (10:15)
[2023-01-09] MEDS ORDERED: Proparacaine 0.5% Ophth Soln 15 ML Bottle EYERT ONE ×2 (10:15→11:10)
[2023-01-09] MEDS ORDERED: Cataract Ophth Solution EYERT ONE (10:15)
[2023-01-09] MEDS ORDERED: Acetaminophen 325 MG Tab PO PRN (10:15)
[2023-01-09] MEDS ORDERED: Lidocaine 1% 30 ML SDV ONE (11:15)
[2023-01-09] MEDS ORDERED: Balanced Salt Solution Ophth Irrig 500 ML Bottle IOCULAR ONE (11:17)
[2023-01-09] MEDS ORDERED: Vancomycin 500 MG SDV EYERT ONE (11:18)
[2023-01-09] MEDS ORDERED: Chondroitin Sulfate/Hyaluronate Sodium Ophth Inj 0.75 ML Syringe EYERT ONE (11:19)
[2023-01-09] MEDS ORDERED: Apraclonidine 0.5% Ophth Soln 5 ML Bot EYERT ONE (11:24)
[2023-01-09] MEDS ORDERED: Dexamethasone/Neomycin/Polymyxin B Ophth Oint 3.5 GM Tube EYERT ONE (11:25)
[2023-01-09] MEDS ORDERED: Diclofenac Sodium 0.1% Ophth Soln 5 ML Bottle EYERT ONE (11:25)
[2023-01-09 12:34] VITALS: BP 125/46; PULSE 71
== END 2023-01-09 12:15 | disposition home or self-care (01) ==
LOC: DL.SDS 10:04
PROVIDERS: ATTEND Ophthalmology
DX: H26.9 Unspecified cataract (principal); H40.1112 Primary open-angle glaucoma, right eye, moderate stage; I10 Essential (primary) hypertension; E78.5 Hyperlipidemia, unspecified; D64.9 Anemia, unspecified; F17.210 Nicotine dependence, cigarettes, uncomplicated; E55.9 Vitamin D deficiency, unspecified; K21.00 Gastro-esophageal reflux disease with esophagitis, without bleeding; Z79.899 Other long term (current) drug therapy; Z79.891 Long term (current) use of opiate analgesic; Z95.5 Presence of coronary angioplasty implant and graft
CPT/HCPCS: 66984; A9270; C1783; J3370; V2632; J3490

== ENCOUNTER 2024-08-18 21:43 | Emergency (ER) | payer MEDICARE, OTHER ==
[2024-08-18 23:34] LABS: BASOPHILS PERCENT AUTO 0.3 % (0.0-1.0); HEMATOCRIT 32.9 % (37.0-47.0); HEMOGLOBIN 10.5 g/dL (12.0-16.0); LYMPHOCYTES PERCENT AUTO 27.1 % (20.5-50.1); MEAN CORPUSCULAR HEMOGLOBIN 31.6 pg (27.0-34.0); MEAN CORPUSCULAR HGB CONC 31.9 g/dL (33.0-35.0); MEAN CORPUSCULAR VOLUME 99.1 fL (80-100); MONOCYTES PERCENT AUTO 14.7 % (2-8); NEUTROPHILS PERCENT AUTO 55.9 % (42.2-75.2); PLATELET COUNT,PLT 79 10^3/uL (150-450); RED BLOOD CELL COUNT 3.32 10^6/uL (4.2-5.4)
[2024-08-18 23:43] LABS: APPEARANCE,URINE CLEAR (CLEAR); BILIRUBIN,URINE NEGATIVE (NEGATIVE); COLOR,URINE YELLOW (YELLOW); GLUCOSE,URINE NEGATIVE (NEGATIVE); KETONES,URINE NEGATIVE (NEGATIVE); LEUKOCYTE ESTERASE,URINE NEGATIVE (NEGATIVE); NITRITE,URINE NEGATIVE (NEGATIVE); OCCULT BLOOD,URINE TRACE-LYSED (NEGATIVE); PROTEIN,URINE TRACE (NEGATIVE)
[2024-08-18 23:52] LABS: INR 1.1 (0.9-1.2); PROTHROMBIN TIME 11.5 SEC (9.0-12.0)
[2024-08-18 23:52] LABS: BACTERIA,URINE FEW /HPF (0-FEW/HPF); EPITHELIAL CELLS,URINE FEW /HPF (NOT SEEN); RBC,URINE 0-5 /HPF (0-5); WBC,URINE 0-5 /HPF (0-5/HPF)
[2024-08-18 23:56] LABS: B-TYPE NATRIURETIC PEPTIDE,BNP 742 pg/ml (0-100)
[2024-08-18 23:58] LABS: A/G RATIO 0.52; ALANINE AMINOTRANSFERASE,ALT 23 U/L (14-59); ALBUMIN 2.5 g/dL (3.4-5.0); ALKALINE PHOSPHATASE 301 U/L (46-116); ANION GAP 12.1 mEq/L (7-13); ASPARTATE AMNIOTRANSFERASE,AST 38 U/L (15-37); BILIRUBIN TOTAL 0.8 mg/dL (0.2-1.0); BLOOD UREA NITROGEN,BUN 10 mg/dL (7-18); BUN/CREATININE RATIO 12.8 (No establ ref range); CALCIUM 9.2 mg/dL (8.5-10.1); CARBON DIOXIDE,CO2 26 mmol/L (21-32); CHLORIDE,CL 108 mmol/L (98-107); CREATINE KINASE,CK 90 U/L (16-191); CREATININE 0.78 mg/dL (0.55-1.02); EST CRCL DRUG DOSING (CG) 58.49 mL/min; ESTIMATED GFR 82 mL/min (>=60); ETHANOL BLOOD MEDICAL < 3 mg/dL (0); GLUCOSE RANDOM 107 mg/dL (70-99); LIPASE 65 U/L (16-77); MAGNESIUM 2.1 mg/dL (1.8-2.4); POTASSIUM,K 4.1 mmol/L (3.5-5.1); PROTEIN TOTAL,TP 7.3 g/dL (6.4-8.2); SODIUM,NA 142 mmol/L (136-145)
[2024-08-19] MEDS: Furosemide 20 MG/2 ML VIAL IVPUSH ONE (00:26)
[2024-08-19 00:46] VITALS: BP 139/67; PULSE 72
[2024-08-19] MEDS: Lactulose Soln 10 GM/15 ML 30 ML UD Cup PO ONE (01:10)
[2024-08-19] MEDS: Acetaminophen 325 MG Tab PO ONE (02:07)
== END 2024-08-19 02:15 | disposition home or self-care (01) ==
LOC: DL.ED 21:43
DX: I11.0 Hypertensive heart disease with heart failure (principal); I50.9 Heart failure, unspecified; I48.91 Unspecified atrial fibrillation; E78.00 Pure hypercholesterolemia, unspecified; F17.210 Nicotine dependence, cigarettes, uncomplicated; Z90.49 Acquired absence of other specified parts of digestive tract; Z79.01 Long term (current) use of anticoagulants; Z79.899 Other long term (current) drug therapy
CPT/HCPCS: 36415; 70450; 71045; 80053; 80307; 81001; 82140; 82550; 83690; 83735; 83880; 84484; 85025; 85610; 93005; 93010; 96374; 99284; 99285-25; A9270-GY; J1940

== ENCOUNTER 2024-09-03 12:03 | Emergency (ER) | payer MEDICARE, OTHER ==
[2024-09-03 13:07] LABS: ANION GAP 10.4 mEq/L (7-13); BLOOD UREA NITROGEN,BUN 14 mg/dL (8-26); CARBON DIOXIDE,CO2 27 mmol/L (24-29); CHLORIDE,CL 88 mmol/L (98-109); CREATININE 0.5 mg/dL (0.6-1.3); ESTIMATED GFR 101 mL/min (>=60); GLUCOSE RANDOM 120 mg/dL (70-105); POTASSIUM,K 4.4 mmol/L (3.5-4.9); SODIUM,NA 121 mmol/L (138-146)
[2024-09-03 13:49] VITALS: BP 146/61; PULSE 73
== END 2024-09-03 13:30 | disposition home or self-care (01) ==
LOC: DL.ED 12:03
DX: I11.0 Hypertensive heart disease with heart failure (principal); I50.9 Heart failure, unspecified; E87.1 Hypo-osmolality and hyponatremia; Z79.899 Other long term (current) drug therapy; I25.10 Atherosclerotic heart disease of native coronary artery without angina pectoris; Z79.01 Long term (current) use of anticoagulants; Z95.0 Presence of cardiac pacemaker
CPT/HCPCS: 36415; 80048; 99284

== ENCOUNTER 2024-09-17 12:40 | Emergency (ER) | payer MEDICARE, OTHER ==
[2024-09-17] MEDS ORDERED: Sodium Chloride 0.9% 10 ML Syringe FLUSH PRN (12:42)
[2024-09-17 13:20] LABS: EOSINOPHILS PERCENT AUTO 0.2 % (1.0-3.0); HEMATOCRIT 40.7 % (37.0-47.0); HEMOGLOBIN 13.8 g/dL (12.0-16.0); LYMPHOCYTES PERCENT AUTO 4.6 % (20.5-50.1); MEAN CORPUSCULAR HEMOGLOBIN 32.7 pg (27.0-34.0); MEAN CORPUSCULAR HGB CONC 33.9 g/dL (33.0-35.0); MEAN CORPUSCULAR VOLUME 96.4 fL (80-100); MONOCYTES PERCENT AUTO 11.2 % (2-8); PLATELET COUNT,PLT 53 10^3/uL (150-450); RED BLOOD CELL COUNT 4.22 10^6/uL (4.2-5.4)
[2024-09-17 13:23] LABS: O2 DELIVERY DEVICE OM
[2024-09-17 13:24] LABS: PH,VENOUS 7.29 (7.31-7.41)
[2024-09-17 13:25] LABS: BASE EXCESS VENOUS 8.5 mmol/l ((-2)-(+3)); BICARBONATE,VENOUS 38 mmol/l (19-25); O2 SATURATION VENOUS 66.1 % (60-80); PCO2 VENOUS 83 mmHg (41-51); PO2 VENOUS 46 mmHg (35-42)
[2024-09-17 13:56] LABS: ALBUMIN 2.8 g/dL (3.4-5.0); ANION GAP 8.3 mEq/L (7-13); BILIRUBIN TOTAL 3.4 mg/dL (0.2-1.0); C-REACTIVE PROTEIN 3.98 ng/dL (<=0.50); CALCIUM 9.8 mg/dL (8.5-10.1); CREATININE 0.72 mg/dL (0.55-1.02); EST CRCL DRUG DOSING (CG) 54.86 mL/min; POTASSIUM,K 3.3 mmol/L (3.5-5.1); PROTEIN TOTAL,TP 7.5 g/dL (6.4-8.2)
[2024-09-17 14:02] LABS: A/G RATIO 0.6
[2024-09-17] MEDS ORDERED: Potassium Chloride 20 MEQ in Premix Bag 1 BAG IV ONE (14:06)
[2024-09-17] MEDS: Potassium Chloride 20 MEQ in Premix Bag 1 BAG IV ONE (14:19)
[2024-09-17] MEDS: cefTRIAXone 2 GM Vial IVPUSH ONE (14:43)
[2024-09-17] MEDS: Azithromycin 500 MG in Sodium Chloride 0.9% 250 ML IV ONE (14:43)
[2024-09-17] MEDS: Lactulose Soln 10 GM/15 ML 30 ML UD Cup PO ONE (15:00)
[2024-09-17] MEDS: Sodium Chloride 0.9% 1,000 ML IV ONE (16:04)
[2024-09-17 17:03] VITALS: BP 94/45; PULSE 70
== END 2024-09-17 16:12 ==
LOC: DL.ED 12:40
DX: J18.9 Pneumonia, unspecified organism (principal); K76.82 Hepatic encephalopathy; I10 Essential (primary) hypertension; E78.00 Pure hypercholesterolemia, unspecified; Z90.49 Acquired absence of other specified parts of digestive tract; Z79.899 Other long term (current) drug therapy; Z79.01 Long term (current) use of anticoagulants
CPT/HCPCS: 36415; 71045; 80053; 82140; 82803; 83735; 83880; 85025; 86140; 87428; 93005; 93010; 94660; 96365; 96366; 96368; 96375; 99285; A9270; J0456; J0696; J3480; J7030; J7050